=== PATIENT | female | born 1980 ===

== ENCOUNTER 2017-08-10 23:27 | Emergency (ER) | payer MEDICAID ==
[2017-08-10 23:39] VITALS: BP 116/77; RESP 16; TEMP 98.4; O2SAT 98
[2017-08-11] MEDS ORDERED: Sucralfate 1 gm/10 ml Oral Susp UD PO STA (00:10)
[2017-08-11] MEDS ORDERED: Famotidine 20mg/50ml Premix IVPB STA (00:10)
[2017-08-11] MEDS ORDERED: Famotidine 20mg/50ml 20 MG/50 ML BAG IVPB ONE (00:16)
[2017-08-11] MEDS ORDERED: Sucralfate 1 gm/10 ml Oral Susp UD ONE (00:17)
--- NOTE | 2017-08-11 00:21 | ED PDOC ---
HPI: Chest Pain Time Seen by Provider: 08/10/17 23:39 Chief Complaint (Nursing): Chest Pain Chief Complaint (Provider): Chest Pain History Per: Patient History/Exam Limitations: no limitations Onset/Duration Of Symptoms: Days (x1) Current Symptoms Are (Timing): Still Present Additional Complaint(s): 37 y/o female with no significant pmhx who presents to the ED for evaluation of chest pain and left sided abdominal pain x1 day. Patient states she developed intermittent substernal pain and left sided abdominal pain earlier today. She also states her abdominal pain is associated with a sharp stabbing sensation. She denies nausea, vomiting, diaphoresis, and shortness of breath. She reports taking Pepto-Bismol without relief. Patient also reports having childhood gastritis. PMD: PURISIMA Past Medical History Reviewed: Historical Data, Nursing Documentation, Vital Signs Vital Signs: Last Vital Signs Temp 98.4 F 08/10/17 23:39 Pulse 67 08/11/17 00:30 Resp 16 08/10/17 23:39 BP 116/77 08/10/17 23:39 Pulse Ox 98 08/11/17 02:02 - Medical History PMH: No Chronic Diseases, Diabetes (gestational) - Surgical History Surgical History: Appendectomy - Family History Family History: States: Unknown Family Hx - Social History Current smoker - smoking cessation education provided: No Alcohol: None Drugs: Denies - Immunization History Hx Tetanus Toxoid Vaccination: No Hx Influenza Vaccination: No Hx Pneumococcal Vaccination: No - Home Medications Home Medications: Ambulatory Orders Medication Instructions Recorded Albuterol HFA [Ventolin HFA 90 2 puff IH [id number] #0 puff 07/22/14 mcg/actuation (8 g)] Prednisone 1 tab PO DAILY #5 tab 07/22/14 Magnesium Citrate 150 gm MC BID #1 bottle 05/22/16 Ondansetron [Zofran] 4 mg PO Q8H #12 tab 05/22/16 Esomeprazole Magnesium [Nexium] 20 mg PO QAM #30 ecc 08/11/17 - Allergies Allergies/Adverse Reactions: Allergies Allergy/AdvReac Type Severity Reaction Status Date / Time No Known Allergies Allergy Verified 08/10/17 23:30 Review of Systems ROS Statement: Except As Marked, All Systems Reviewed And Found Negative Constitutional: Negative for: Sweats Cardiovascular: Positive for: Chest Pain Respiratory: Negative for: Shortness of Breath Gastrointestinal: Positive for: Abdominal Pain. Negative for: Nausea, Vomiting Physical Exam - Reviewed Nursing Documentation Reviewed: Yes Vital Signs Reviewed: Yes - Physical Exam Appears: Positive for: Non-toxic, No Acute Distress Head Exam: Positive for: ATRAUMATIC, NORMAL INSPECTION, NORMOCEPHALIC Skin: Positive for: Normal Color, Warm, Dry. Negative for: Rash Eye Exam: Positive for: EOMI, Normal appearance, PERRL Neck: Positive for: Normal, Painless ROM, Supple Cardiovascular/Chest: Positive for: Regular Rate, Rhythm. Negative for: Murmur Respiratory: Positive for: Normal Breath Sounds. Negative for: Respiratory Distress Gastrointestinal/Abdominal: Positive for: Soft, Tenderness (epigastric) Back: Positive for: Normal Inspection. Negative for: L CVA Tenderness, R CVA Tenderness, Vertebral Tenderness Extremity: Positive for: Normal ROM. Negative for: Pedal Edema, Deformity Neurologic/Psych: Positive for: Alert, Oriented. Negative for: Motor/Sensory Deficits - Laboratory Results Result Diagrams: 08/11/17 00:15 08/11/17 00:15 - ECG O2 Sat by Pulse Oximetry: 98 (RA) Pulse Ox Interpretation: Normal Medical Decision Making Medical Decision Making: Initial Impression: 37 y/o female with chest pain and abdominal pain Initial Plan: --CMP --Lipase --Drug screen --Troponin I --Urine --CBC --CXR --Carafate Oral Susp 1gm PO --Pepcid 20mg IVPD --Toradol 10mg IVP --Heplock --US Abdomen --Reevaluation Scribe Attestation: Documented by Kev Fu, acting as a scribe for Royer Godoy MD. Provider Scribe Attestation: All medical record entries made by the Scribe were at my direction and personally dictated by me. I have reviewed the chart and agree that the record accurately reflects my personal performance of the history, physical exam, medical decision making, and the department course for this patient. I have also personally directed, reviewed, and agree with the discharge instructions and disposition. Disposition - Clinical Impression Clinical Impression: Atypical chest pain - Disposition Disposition: Routine/Home Disposition Time: 02:00 Condition: STABLE Prescriptions: Esomeprazole Magnesium [Nexium] 20 mg PO QAM #30 ecc Instructions: Chest Pain That Is Not Caused by the Heart (DC) Forms: [employer] ([place])
[2017-08-11 00:31] VITALS: PULSE 67
[2017-08-11 00:34] LABS: BASO % 0.5 % (0.0-2.0); EOS # 0.3 K/uL (0.0-0.7); EOS % 3.2 % (0.0-4.0); HEMOGLOBIN 11.9 g/dL (12.0-16.0); LYMPH # 2.6 K/uL (1.0-4.3); LYMPH % 32.1 % (20.0-40.0); MEAN CELL VOLUME 85.2 fl (81.0-99.0); MEAN CORPUSCULAR HEMOGLOBIN 28.8 pg (27.0-31.0); MEAN CORPUSCULAR HGB CONC 33.9 g/dL (33.0-37.0); MEAN PLATELET VOLUME 9.6 fl (7.2-11.7); MONO # 0.5 K/uL (0.0-0.8); NEUT # 4.8 K/uL (1.8-7.0); NEUT % 58.2 % (50.0-75.0); RBC 4.13 Mil/uL (3.80-5.20); RED CELL DISTRIBUTION WIDTH 14.7 % (11.5-14.5); WHITE BLOOD COUNT 8.2 K/uL (4.8-10.8)
[2017-08-11 00:42] LABS: ALB/GLOB RATIO 1.1 (1.0-2.1); ALT/SGPT 33 U/L (9-52); AST/SGOT 22 U/L (14-36); BLOOD UREA NITROGEN 14 mg/dl (7-17); CALCIUM 9.1 mg/dL (8.4-10.2); GFR AFRICAN-AMERICAN > 60; GFR NON-AFRICAN AMERICAN > 60; LIPASE 69 U/L (23-300)
[2017-08-11 00:55] LABS: BARBITURATES, UR NEGATIVE (NEGATIVE); BENZODIAZEPINES, UR NEGATIVE (NEGATIVE); OPIATES, UR NEGATIVE (NEGATIVE); PHENCYCLIDINE, UR NEGATIVE (NEGATIVE)
--- NOTE | 2017-08-11 03:43 | US ---
EXAM: US Abdomen Limited, Right Upper Quadrant CLINICAL HISTORY: 37 years old, female; Pain; Abdominal pain; Epigastric; Additional info: Ruq study TECHNIQUE: Real-time ultrasound of the right upper quadrant with image documentation. COMPARISON: No relevant prior studies available. FINDINGS: Limitations: Overlying bowel gas. Liver: Normal echogenicity. No mass. No intrahepatic bile duct dilatation. Gallbladder: Contracted. No gallstones. No wall thickening. No pericholecystic fluid. No sonographic Cunha's sign. Common bile duct: No dilatation. No stones. Pancreas: Unremarkable as visualized. Right kidney: Normal echogenicity. No hydronephrosis. IMPRESSION: 1.No acute findings.
--- NOTE | 2017-08-11 08:33 | RAD ---
HISTORY: Chest pain COMPARISON: 05/22/2016. FINDINGS: LUNGS: The lungs are well inflated and clear. PLEURA: No significant pleural effusion identified, no pneumothorax apparent. CARDIOVASCULAR: Normal. OSSEOUS STRUCTURES: No significant abnormalities. VISUALIZED UPPER ABDOMEN: Normal. OTHER FINDINGS: None. IMPRESSION: No active pulmonary disease.
--- NOTE | 2017-08-11 10:51 | CARD ---
APPROVED REPORT EKG Measurement Heart [id number] <Conclusion> Normal sinus rhythm with sinus arrhythmia Nonspecific T wave abnormality Abnormal ECG
== END 2017-08-11 04:22 | disposition home or self-care (01) ==
LOC: H.ER 23:27
DX: R07.89 Other chest pain (principal)
CPT/HCPCS: 71045; 76705; 80053; 80324; 80345; 80346; 80349; 80353; 80358; 80361; 81025; 83690; 83992; 84484; 85025; 93005; 96365; 96375; 99284; J1885